=== PATIENT | female | born 1925 | race Caucasian/White ===

== ENCOUNTER 2017-01-22 14:02 | Emergency (ER) | payer OTHER, BC ==
[~2017-01-22] VITALS: Ht 162.6 cm; Wt 79.4 kg
[2017-01-22] MEDS ORDERED: ASPIR 8181 M1 PO (14:38)
[2017-01-22] MEDS ORDERED: TOPROL XL25 MG PO (14:38)
[2017-01-22] MEDS ORDERED: NORVASC5 MG PO (14:38)
[2017-01-22] MEDS ORDERED: LOSARTAN-HCTZ1 EAC1 PO (14:39)
[2017-01-22] MEDS ORDERED: RESTASIS1 EACH OPHTHALMIC (14:39)
[2017-01-22] MEDS ORDERED: BETIMOL5 ML OPHTHALMIC (14:40)
[2017-01-22] MEDS ORDERED: NEURONTIN 300300 M1 PO (15:24)
[2017-01-22 15:47] VITALS: BP 151/71
== END 2017-01-22 15:48 | disposition home or self-care (01) ==
LOC: ER 14:02
DX: G50.0 Trigeminal neuralgia (principal); Z88.5 Allergy status to narcotic agent